=== PATIENT | female | born 1965 | race Caucasian/White ===

== ENCOUNTER 2020-11-14 10:09 | Emergency (ER) | payer OTHER, SELFPAY ==
--- NOTE | ~2020-11-14 | XR_ITS ---
EXAMINATION: XR KNEE, RIGHT CLINICAL INFORMATION: Pain. COMPARISON: None TECHNIQUE: Four views of the right knee. FINDINGS: Bones and soft tissues are normal. No fracture or joint effusion. Alignment is anatomic. Joint spaces are well maintained. No abnormal soft tissue calcification. XR/XR knee RT 4V IMPRESSION: Unremarkable right knee exam.
[2020-11-14 10:32] VITALS: BP 169/82; PULSE 104; RESP 18; TEMP 36.6; O2SAT 100; BMI 25.2
--- NOTE | 2020-11-14 12:11 | ED_ITS ---
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 [employer] which happened 2 days ago Related Data Previous Rx's Medication Instructions Recorded ibuprofen 600 mg PO Q6H PRN #20 tab 11/14/20 Allergies Allergy/AdvReac Type Severity Reaction Status Date / Time No Known Allergies Allergy Verified 11/14/20 10:31 PMF Past Medical History Medical History (Updated 11/14/20 @ 12:13 by DAVID Boyce) Scoliosis Surgical History (Updated 11/14/20 @ 10:36 by Connie Bowles) Previous section Social History Social History Smoked in Last 30 Days: No Use of substances other than those prescribed or required for medical reasons: No Advance Directives: Yes Advance Directives Information Provided: Yes Advance Directives on File: No Physical Exam Vital Signs: Vital Signs: Last Vital Signs Temp 97.8 F 11/14/20 10:32 Pulse 104 H 11/14/20 10:32 Resp 18 11/14/20 10:32 BP 169/82 H 11/14/20 10:32 Pulse Ox 100 11/14/20 10:32 Body Mass Index 25.2 Discharge Plan Discharge Clinical Impression: Right knee sprain Patient Disposition: Home, Self-Care Additional Instructions: Follow with orthopedist, you may need a referral from the workman's comp doctor Prescriptions: New ibuprofen 600 mg tablet 600 mg PO Q6H PRN (Reason: pain) Qty: 20 RF: 0 Referrals: [facility] [Provider Group] - 2 days (Knee sprain at work) Yayo Dempsey MD [Physician] - 2 days (Right knee sprain) Stand Alone Forms: Work/School Release
[2020-11-14 12:34] VITALS: BP 149/84; PULSE 78; O2SAT 98
== END 2020-11-14 12:40 | disposition home or self-care (01) ==
PROVIDERS: Emergency Provider Emergency Medicine Emergency Medical Services; PCP Internal Medicine
DX: S83.91XA Sprain of unspecified site of right knee, initial encounter (principal); X50.1XXA Overexertion from prolonged static or awkward postures, initial encounter; Y93.89 Activity, other specified; Y92.219 Unspecified school as the place of occurrence of the external cause; Y99.0 Civilian activity done for income or pay
CPT/HCPCS: 73564; 99283; 99284

== ENCOUNTER → 2020-11-18 12:57 | Outpatient (BNVA) | payer OTHER, SELFPAY | PROVIDERS: PCP Internal Medicine; Visit Provider Internal Medicine | DX: S83.411D Sprain of medial collateral ligament of right knee, subsequent encounter (principal); X50.0XXD Overexertion from strenuous movement or load, subsequent encounter | CPT/HCPCS: 99201 ==